=== PATIENT | female | born 1950 | race Caucasian/White ===

== ENCOUNTER 2016-10-13 15:32 | Outpatient (CLI) ==
--- NOTE | 2016-10-13 16:11 | DI ---
EXAM: Left foot three view HISTORY: Pain COMPARISON: None FINDINGS: No fracture or dislocation. Small plantar calcaneal spur. The joints are normal. No foca l soft tissue abnormality. Tiny superficial soft tissue calcification suggested near fifth MTP joint . IMPERSSION: Small plantar calcaneal spur.
== END 2016-10-13 15:33 | disposition home or self-care (01) ==
LOC: RAD 15:32
PROVIDERS: ATTEND Family Medicine
DX: M79.672 Pain in left foot (principal)

== ENCOUNTER 2017-02-16 10:00 | Outpatient (RCR) ==
--- NOTE | 2017-02-01 09:26 | RS.OPPTEV2 ---
Date of Note: 01/27/17 Visit #: 1 Date of Evaluation: 01/27/17 Payer Source: Medicaid Treatment Diagnosis: Gait abnormality, Right hemiparesis History of Condition/Mechanism of Injury:: States she was ambulating with a walker up until the last 6 months. States she had a fall that hurt her right shoulder. States putting weight through her right shoulder with use of the walker, caused increased pain, so she quit walking. Level of Function: Patient has been dependent for most selfcare and ADL's. She has a hospital bed at home and has an overhead trapeze bar that she uses to get herself in and out of bed. She is either in her wheelchair or in her bed. Functional Limitations: Sleep, Self Care, ADL's, Reaching, Pushing, Pulling, Lifting, Carrying, Sitting, Standing, Bending, Squatting, Ambulation, Community Access/Integration Current Subjective/complaints:: Patient reports that she wants to walk. States that she had to quit using the walker to ambulate because it bothered her right shoulder. States she was supposed to see a specialist about the right shoulder but has not. She feels that she has more strength in her right leg and wants to be able to walk, at least short distances. Treatment Side (optional): Right Medical History Medical History: Unremarkable, Hypertension, CVA/TIA (06/23/15), Diabetes Medical History Comments:: (L) wrist fx Smoking Status: Current every day smoker Patient's Goals: Her goal is to be able to walk short distances. Pain Assessment - Pain Description Pain Location: Reports no pain Functional Outcome Measure - G Codes & Severity Modifier G Codes & Modifier: NA Source of G Code score: NA Observation - Observation Inspection: Patient presents to therapy via wheelchair. Patient able to transfer from wheelchair to treatment bed with CGA of one. Posture: Scapula Asymmetry (right scapula depressed) Handedness: Right Gait - Gait Pattern Gait Comments: Patient assisted with octavio-walker with moderate assistance of 2, ~ 30 feet. Patient demonstrates good clearance of right foot, even though she has decreased right hip and knee flexion. Sit to stand with min of 1-2 to stand with octavio-walker. Needs assistance with balance to get use to the octavio- walker. Demonstrates a very NBOS due to right foot placement. General Range of Motion: Bilateral LE ROM is WFL's. Left UE is WFL's. Right shoulder demonstrates 50% of normal ROM, full elbow AROM, 75% wrist AROM. AROM of the right UE is slow. Muscle Strength: Left UE and LE demonstrates 5/5 throughout. Right UE demonstrates generally 3/5 shoulder, 3+ to 4-/5 elbow, 4-/5 of the wrist. Right LE demonstrates hip 3+ to 4-/5, knee 4- to 4/5, ankle 4-/5. Sensation - Sensation Right Lower Extremity: Intact/Normal Left Lower Extremity: Intact/Normal Balance - Sitting Balance Static Sitting Balance: Good Dynamic Sitting Balance: Good (-) - Standing Balance Static Standing Balance: Fair Dynamic Standing Balance: Fair Additional Comments: Additional Comments: Right hamstring and heelcord are tight compared to the left LE. Interventions - Exercise/Activities/Manual Therapy Exercises/Activities: NA Manual Therapy: NA - Charges Total Direct Minutes: 50 mins Total Treatment Time: 50 mins Procedures billed for this date of service:: BERNIE BrushX 3 Assessment Assessment: Patient presents to therapy with a diagnosis of gait difficulty and hemiplegia. She demonstrates decreased level of function over the last 4-6 months with ambulation due to right shoulder pain and limitations with using a walker. She displays strong motivation to use whatever other assistive device she can to be able to walk short distances. She exhibits more tone in the right side and shows potential to ambulate with a octavio-walker with balance, proprioception, and gait training activities. Patient Education: Education of diagnosis, Home Safety, Education of Plan of Care Rehab Potential: Good Short Term Goals Goal #1: Sit to stand with octavio-walker with CGA of one and verbal cues. Goal to be met by: 02/15/17 Goal #2: Pt to amb. 10 feet with consistent good base of support with HW & mod of 1. Goal to be met by: 02/15/17 Goal #3: Static standing balance improved to Good. Goal to be met by: 02/15/17 Goal #4: Patient independent and compliant with HEP. Goal to be met by: 02/15/17 Shear Operator Automatic Goals Goal #1: Pt knows HEP and to continue ex's to maintain functional level at D/C. Goal to be met by: 04/02/17 Goal #2: Pt able to amb. with HW independently short distances. Goal to be met by: 04/02/17 Goal #3: Pt able to perform all transfers using HW independently. Goal to be met by: 04/02/17 Goal #4: Pt to demonstrate good safety awareness with all mobility. Goal to be met by: 04/02/17 Plan - Treatment to be Provided Procedures: Therapeutic Exercises, Therapeutic Activity, Gait Training, Neuromuscular Rehab, Patient Education Modalities: No Modalities - Treatment Plan Frequency: 3 X week Duration: 8 weeks ORDER # VISITS AND/OR THROUGH DATE: 04/02/17 - Treatment Code (1) Gait difficulty Comments: R26.9 (2) Hemiplegia following CVA (cerebrovascular accident) Comments: I69.359 (3) Impaired functional mobility, balance, gait, and endurance Comments: Z74.09
--- NOTE | 2017-02-01 14:55 | RS.OPPTDN ---
Subjective Date of Note: 02/01/17 Visit #: 2 Date of Evaluation: 01/27/17 Payer Source: Medicaid Treatment Diagnosis: Gait abnormality, Right hemiparesis Current Subjective/complaints:: Reports she has not walked safely in approximately 5 months,but is willing to try to get better. Pain Assessment - Pain Description Pain Location: Reports no pain Pain Description: Tightness Current Pain Intensity: Does not rate Interventions - Exercise/Activities/Manual Therapy Exercises/Activities: 50 mins. total of exercise,NMR and gait training , including R LE stretches in all directions,prolonged static stretch and pressure application for inhibiting hypertonus ni the R LE,sitting and standing weight shift with various widths of her base of support.Tramsfers and gait training with octavio-walker for ~25" and mod.assist of 1. Total minutes of Exercise: 50 Manual Therapy: NA Total minutes of Manual Therapy: 0 HOME EXERCISE PROGRAM: Encouraged patient to try pillow squeezes and QS for home. Hook-lying LE lifts, SLR, SAQ - Charges Total Direct Minutes: 50 Total Treatment Time: 50 Procedures billed for this date of service:: ex,NMR,gait training Assessment: Patient has improved base of support after passive stretches today.Less tone is present with transfers and she is able to maintain a functionnal JOSHUA for ambulating short distances.She is still high risk for falls if unassisted,can benefit from skilled PT to improve her level of function and safety. Patient Education: Education of diagnosis, Body/Joint mechanics, Home Exercise Program, Home Safety, Activity Modification, Education of Plan of Care Short Term Goals Goal #1: Sit to stand with octavio-walker with CGA of one and verbal cues. Goal to be met by: 02/15/17 Progress towards Goal:: Progressing Goal #2: Pt to amb. 10 feet with consistent good base of support with HW & mod of 1. Goal to be met by: 02/15/17 Progress towards Goal:: Progressing Goal #3: Static standing balance improved to Good. Goal to be met by: 02/15/17 Goal #4: Patient independent and compliant with HEP. Goal to be met by: 02/15/17 Prison Goals Goal #1: Pt knows HEP and to continue ex's to maintain functional level at D/C. Goal to be met by: 04/02/17 Goal #2: Pt able to amb. with HW independently short distances. Goal to be met by: 04/02/17 Goal #3: Pt able to perform all transfers using HW independently. Goal to be met by: 04/02/17 Goal #4: Pt to demonstrate good safety awareness with all mobility. Goal to be met by: 04/02/17 Plan PLAN OF CARE EXPIRES ON:: 04/02/17 ORDER # VISITS AND/OR THROUGH DATE: 04/02/17 PLAN: Continue Plan of Care
--- NOTE | 2017-02-04 14:41 | RS.OPPTDN ---
Subjective Date of Note: 02/04/17 Visit #: 3 Date of Evaluation: 01/27/17 Payer Source: Medicaid Treatment Diagnosis: Gait abnormality, Right hemiparesis Current Subjective/complaints:: Patient reports no soreness or discomfort after stretches from last session. Pain Assessment - Pain Description Pain Location: Reports no pain Pain Description: Tightness Current Pain Intensity: Does not rate Interventions - Exercise/Activities/Manual Therapy Exercises/Activities: 55 mins. total of exercise,NMR and gait training , including R LE stretches in all directions,prolonged static stretch and pressure application for inhibiting hypertonus ni the R LE,lower trunk rotation in hooklying position,sitting and standing weight shift with various widths of her base of support.Tramsfers and gait training with octavio-walker for ~40" and mod.assist of 1. Total minutes of Exercise: 55 Manual Therapy: NA Total minutes of Manual Therapy: 0 HOME EXERCISE PROGRAM: Encouraged patient to try pillow squeezes and QS for home. Hook-lying LE lifts, SLR, SAQ - Charges Total Direct Minutes: 55 Total Treatment Time: 55 Procedures billed for this date of service:: ex 2,NMR,gait training Assessment: Patient has improved trunk control today with gait,begins with appropriate JOSHUA,but has narrower base as the gait progresses.She is able to self -correct this after brief rest period today.She is very attentive ,motivated to improve. Patient Education: Education of diagnosis, Body/Joint mechanics, Home Exercise Program, Home Safety, Activity Modification, Education of Plan of Care Patient demonstrates compliance with HEP?: Yes Short Term Goals Goal #1: Sit to stand with octavio-walker with CGA of one and verbal cues. Goal to be met by: 02/15/17 Progress towards Goal:: Progressing Goal #2: Pt to amb. 10 feet with consistent good base of support with HW & mod of 1. Goal to be met by: 02/15/17 Progress towards Goal:: Progressing Goal #3: Static standing balance improved to Good. Goal to be met by: 02/15/17 Progress towards Goal:: No Change Goal #4: Patient independent and compliant with HEP. Goal to be met by: 02/15/17 Progress towards Goal:: Progressing Usp Goals Goal #1: Pt knows HEP and to continue ex's to maintain functional level at D/C. Goal to be met by: 04/02/17 Progress towards goal: Progressing Goal #2: Pt able to amb. with HW independently short distances. Goal to be met by: 04/02/17 Goal #3: Pt able to perform all transfers using HW independently. Goal to be met by: 04/02/17 Goal #4: Pt to demonstrate good safety awareness with all mobility. Goal to be met by: 04/02/17 Plan PLAN OF CARE EXPIRES ON:: 04/02/17 ORDER # VISITS AND/OR THROUGH DATE: 04/02/17 PLAN: Continue Plan of Care
--- NOTE | 2017-02-08 13:52 | RS.OPPTDN ---
Subjective Date of Note: 02/08/17 Visit #: 4 Date of Evaluation: 01/27/17 Payer Source: Medicaid Treatment Diagnosis: Gait abnormality, Right hemiparesis Current Subjective/complaints:: Patient says she has not fallen lately. Reports she believes therapy is helping and glad to be up walking. Pain Assessment - Pain Description Pain Location: Reports no pain Pain Description: Tightness Current Pain Intensity: Does not rate Interventions - Exercise/Activities/Manual Therapy Exercises/Activities: 45 mins. total of exercise,NMR and gait training , including R LE stretches in all directions,prolonged static stretch and pressure application for inhibiting hypertonus in the R LE,lower trunk rotation in hooklying position,sitting and standing weight shift with various widths of her base of support. She performs hip flexion and abd at railing. Transfers and gait training with octavio-walker for 2 x40" and mod.assist of 1. Manual Therapy: NA HOME EXERCISE PROGRAM: Encouraged patient to try pillow squeezes and QS for home. Hook-lying LE lifts, SLR, SAQ - Charges Total Direct Minutes: 45 Total Treatment Time: 45 Procedures billed for this date of service:: ex, NMR, GT Assessment: Patient able to sy increased amb distance today. She needed physical cues to keep feet apart with amb, but guides octavio walker well. Needs cueing to safely transfer to chair from standing. Patient Education: Education of diagnosis, Body/Joint mechanics, Home Exercise Program, Home Safety, Activity Modification, Education of Plan of Care Patient demonstrates compliance with HEP?: Yes Short Term Goals Goal #1: Sit to stand with octavio-walker with CGA of one and verbal cues. Goal to be met by: 02/15/17 Progress towards Goal:: Progressing Goal #2: Pt to amb. 10 feet with consistent good base of support with HW & mod of 1. Goal to be met by: 02/15/17 Progress towards Goal:: Progressing Goal #3: Static standing balance improved to Good. Goal to be met by: 02/15/17 Progress towards Goal:: No Change Goal #4: Patient independent and compliant with HEP. Goal to be met by: 02/15/17 Progress towards Goal:: Progressing Edger Operator Goals Goal #1: Pt knows HEP and to continue ex's to maintain functional level at D/C. Goal to be met by: 04/02/17 Progress towards goal: Progressing Goal #2: Pt able to amb. with HW independently short distances. Goal to be met by: 04/02/17 Goal #3: Pt able to perform all transfers using HW independently. Goal to be met by: 04/02/17 Goal #4: Pt to demonstrate good safety awareness with all mobility. Goal to be met by: 04/02/17 Plan PLAN OF CARE EXPIRES ON:: 04/02/17 ORDER # VISITS AND/OR THROUGH DATE: 04/02/17 PLAN: Progress Exercises
--- NOTE | 2017-02-12 15:02 | RS.OPPTDN ---
Subjective Date of Note: 02/12/17 Visit #: 5 Date of Evaluation: 01/27/17 Payer Source: Medicaid Treatment Diagnosis: Gait abnormality, Right hemiparesis Current Subjective/complaints:: Patient says she has had more soreness to the R upper leg. She says she feels she is progressing with amb and ex in PT and eager to continue to improve. Pain Assessment - Pain Description Pain Location: Reports no pain Pain Description: Tightness Current Pain Intensity: Does not rate Interventions - Exercise/Activities/Manual Therapy Exercises/Activities: 55 mins. total of exercise,NMR and gait training , including R LE stretches in all directions,prolonged static stretch and pressure application for inhibiting hypertonus in the R LE,lower trunk rotation in hooklying position, ball squeezes, isometric hip abd, trunk rotation isometrics, bridging 2/5-10), sitting and standing weight shift with various widths of her base of support. She performs hip flexion and abd at railing. Transfers and gait training with octavio-walker for 2 x40" and mod.assist of 1. Manual Therapy: NA HOME EXERCISE PROGRAM: Encouraged patient to try pillow squeezes and QS for home. Hook-lying LE lifts, SLR, SAQ - Charges Total Direct Minutes: 55 Total Treatment Time: 55 Procedures billed for this date of service:: nmr, ex2, gt Assessment: Patient demo increased strength with resistance exercises, gait becoming slightly more steady with hemiwalker. Standing exercises require mod A at times and stability by PEDIATRIC ONCOLOGY NURSE for her R foot placement. Patient Education: Education of diagnosis, Body/Joint mechanics, Home Exercise Program, Home Safety, Activity Modification, Education of Plan of Care Patient demonstrates compliance with HEP?: Yes Short Term Goals Goal #1: Sit to stand with octavio-walker with CGA of one and verbal cues. Goal to be met by: 02/15/17 Progress towards Goal:: Progressing Goal #2: Pt to amb. 10 feet with consistent good base of support with HW & mod of 1. Goal to be met by: 02/15/17 Progress towards Goal:: Progressing Goal #3: Static standing balance improved to Good. Goal to be met by: 02/15/17 Progress towards Goal:: No Change Goal #4: Patient independent and compliant with HEP. Goal to be met by: 02/15/17 Progress towards Goal:: Progressing Cemetery Vault Installer Goals Goal #1: Pt knows HEP and to continue ex's to maintain functional level at D/C. Goal to be met by: 04/02/17 Progress towards goal: Progressing Goal #2: Pt able to amb. with HW independently short distances. Goal to be met by: 04/02/17 Goal #3: Pt able to perform all transfers using HW independently. Goal to be met by: 04/02/17 Goal #4: Pt to demonstrate good safety awareness with all mobility. Goal to be met by: 04/02/17 Plan PLAN OF CARE EXPIRES ON:: 04/02/17 ORDER # VISITS AND/OR THROUGH DATE: 04/02/17 PLAN: Progress Exercises
== END 2017-02-18 ==
PROVIDERS: ATTEND Family Medicine
DX: R26.9 Unspecified abnormalities of gait and mobility (principal); G81.90 Hemiplegia, unspecified affecting unspecified side

== ENCOUNTER 2017-03-09 11:00 | Outpatient (RCR) ==
--- NOTE | 2017-02-19 09:46 | RS.CXNS ---
Date of scheduled appointment: 02/19/17 Type: Cancel
--- NOTE | 2017-02-26 09:31 | RS.CXNS ---
Addendum entered and electronically signed by REINA GALAN PTA 02/26/17 10:00 : Additional Information: Patient came in an hour late as she had forgotten appt time Original Note: Date of scheduled appointment: 02/26/17 Type: No Show
--- NOTE | 2017-03-02 14:41 | RS.OPPTDN ---
Subjective Date of Note: 03/02/17 Visit #: 7 Date of Evaluation: 01/27/17 Payer Source: Medicaid Treatment Diagnosis: Gait abnormality, Right hemiparesis Current Subjective/complaints:: Reports she is doing better with trasnfers at home. States she walks occasionally with assistance from her son. Pain Assessment - Pain Description Pain Location: Reports no pain Current Pain Intensity: Does not rate Interventions - Exercise/Activities/Manual Therapy Exercises/Activities: 50 mins total. Exercise for passive stretching of the right LE. Focus on hamstrings, hip flexor, and heel cords. Isometric hip add, isometric flexion, isometric hip abd. SLR on left and alt hip flexion. Sit to stand and weight-shifting, multiple reps. Sitting LAQ and hip flexion. Gait training with octavio-walker, 40' x2reps with min assist of 1. Patient actively trying to keep feet apart and have good placement of right LE when advancing. Total minutes of Exercise: EX 35mins, Gait training 15mins Manual Therapy: NA HOME EXERCISE PROGRAM: Encouraged patient to try pillow squeezes and QS for home. Hook-lying LE lifts, SLR, SAQ - Charges Total Direct Minutes: 50mins Total Treatment Time: 50mins Procedures billed for this date of service:: EX2, GT Assessment: Patient demos improvement in foot placement with ambulation. She demos improvement safety awareness. Patient Education: Home Exercise Program, Home Safety Patient demonstrates compliance with HEP?: Yes Short Term Goals Goal #1: Sit to stand with octavio-walker with CGA of one and verbal cues. Goal to be met by: 02/15/17 Progress towards Goal:: Progressing Goal #2: Pt to amb. 10 feet with consistent good base of support with HW & mod of 1. Goal to be met by: 02/15/17 Progress towards Goal:: Progressing Goal #3: Static standing balance improved to Good. Goal to be met by: 02/15/17 Progress towards Goal:: Progressing Goal #4: Patient independent and compliant with HEP. Goal to be met by: 02/15/17 Progress towards Goal:: Progressing Laser Engraver Goals Goal #1: Pt knows HEP and to continue ex's to maintain functional level at D/C. Goal to be met by: 04/02/17 Progress towards goal: Progressing Goal #2: Pt able to amb. with HW independently short distances. Goal to be met by: 04/02/17 Goal #3: Pt able to perform all transfers using HW independently. Goal to be met by: 04/02/17 Goal #4: Pt to demonstrate good safety awareness with all mobility. Goal to be met by: 04/02/17 Plan PLAN OF CARE EXPIRES ON:: 04/02/17 ORDER # VISITS AND/OR THROUGH DATE: 04/02/17 PLAN: Progress Exercises (Contine to progress exercise and mobility training to increase functional activity level.)
--- NOTE | 2017-03-04 14:42 | RS.OPPTDN ---
Subjective Date of Note: 03/04/17 Visit #: 8 Date of Evaluation: 01/27/17 Payer Source: Medicaid Treatment Diagnosis: Gait abnormality, Right hemiparesis Current Subjective/complaints:: Patient says she was trying octavio walker amb at home and she fell yesterday. She says she was walking with her son and she became off balanced and though her son had her. She slid down onto her bottom on his foot. She denies being hurt. She says she is excited that she has the octavio walker to use at home and is trying to be as safe as he can. Pain Assessment - Pain Description Pain Location: Reports no pain Current Pain Intensity: Does not rate Interventions - Exercise/Activities/Manual Therapy Exercises/Activities: 50 mins total. Exercise for passive stretching of the right LE. Focus on hamstrings, hip flexor, and heel cords. SAQ 1 1/2#, QS, Ball squeezes, isometric flexion, isometric hip abd. Red tband trunk rotation to the L and R. Bridging and Bilateral LE lift with ball 2x10. Bilateral SAQ with ball at ankles for lift 2x10. SLR on left and alt hip flexion. Sit to stand and weight-shifting, multiple reps. Gait training with octavio-walker, 40' x2reps with min assist of 1. Patient actively trying to keep feet apart and have good placement of right LE when advancing. Patient has 1 LOB and had to cue to take extra steps as she tried to sit down in waiting room chair and was not near enough. Manual Therapy: NA HOME EXERCISE PROGRAM: Encouraged patient to try pillow squeezes and QS for home. Hook-lying LE lifts, SLR, SAQ - Charges Total Direct Minutes: 50 Total Treatment Time: 50 Procedures billed for this date of service:: neuro1, ex2 Assessment: Patient had recent fall yesterday landing on her son's foot with her bottom. She has been trying to walk at home now since she has a loaner octavio walker. Instructed and reviewed HEP and safety when transferring and using her octavio walker. Patient Education: Education of diagnosis, Body/Joint mechanics, Home Exercise Program, Home Safety, Activity Modification, Education of Plan of Care Patient demonstrates compliance with HEP?: Yes Short Term Goals Goal #1: Sit to stand with octavio-walker with CGA of one and verbal cues. Goal to be met by: 02/15/17 Progress towards Goal:: Progressing Goal #2: Pt to amb. 10 feet with consistent good base of support with HW & mod of 1. Goal to be met by: 02/15/17 Progress towards Goal:: Progressing Goal #3: Static standing balance improved to Good. Goal to be met by: 02/15/17 Progress towards Goal:: Progressing Goal #4: Patient independent and compliant with HEP. Goal to be met by: 02/15/17 Progress towards Goal:: Progressing Personal Lines Underwriter Goals Goal #1: Pt knows HEP and to continue ex's to maintain functional level at D/C. Goal to be met by: 04/02/17 Progress towards goal: Progressing Goal #2: Pt able to amb. with HW independently short distances. Goal to be met by: 04/02/17 Progress towards goal: Progressing Comments: now amb with assistance Goal #3: Pt able to perform all transfers using HW independently. Goal to be met by: 04/02/17 Goal #4: Pt to demonstrate good safety awareness with all mobility. Goal to be met by: 04/02/17 Plan PLAN OF CARE EXPIRES ON:: 04/02/17 ORDER # VISITS AND/OR THROUGH DATE: 04/02/17 PLAN: Progress Exercises
--- NOTE | 2017-03-09 12:03 | RS.OPPTDN ---
Subjective Date of Note: 03/09/17 Visit #: 9 Date of Evaluation: 01/27/17 Payer Source: Medicaid Treatment Diagnosis: Gait abnormality, Right hemiparesis Current Subjective/complaints:: Patient pleasant and motivated to improve. Pain Assessment - Pain Description Pain Description: Aching Current Pain Intensity: Does not rate Interventions - Exercise/Activities/Manual Therapy Exercises/Activities: 45 mins total. Exercise for passive stretching of the right LE. Focus on hamstrings, hip flexor, and heel cords.Initiated leg press tody with both LE's and 15 #,30# ,3/10 each.R LE leg press with 15# and assist to initiate the motion,progressed to doing with out assist.Standing weight - shift with widened JOSHUA to inhibit tone.Reviewed safety measures for transfers and gait.Gait training for ~ 60' with min assist ,one loss of balance as she fatigued , with mod assist to correct. Total minutes of Exercise: 45 Manual Therapy: NA Total minutes of Manual Therapy: 0 HOME EXERCISE PROGRAM: Encouraged patient to try pillow squeezes and QS for home. Hook-lying LE lifts, SLR, SAQ - Charges Total Direct Minutes: 45 Total Treatment Time: 45 Procedures billed for this date of service:: ex 2 , gait 1 Assessment: Patient has improved ability to weight -shift to R today to inhibit tone before initiating gait,also resulting in wider JOSHUA.She has decreased trunk / pelvic dissociation due to tone.She contuunues to fatigue easily with standing activities,still moderate to high risk of falls if unassisted. Patient Education: Education of diagnosis, Body/Joint mechanics, Home Exercise Program, Home Safety, Activity Modification, Education of Plan of Care Short Term Goals Goal #1: Sit to stand with octavio-walker with CGA of one and verbal cues. Goal to be met by: 02/15/17 Progress towards Goal:: Progressing Goal #2: Pt to amb. 10 feet with consistent good base of support with HW & mod of 1. Goal to be met by: 02/15/17 Progress towards Goal:: Progressing Goal #3: Static standing balance improved to Good. Goal to be met by: 02/15/17 Progress towards Goal:: Progressing Goal #4: Patient independent and compliant with HEP. Goal to be met by: 02/15/17 Progress towards Goal:: Progressing Department Specialist Goals Goal #1: Pt knows HEP and to continue ex's to maintain functional level at D/C. Goal to be met by: 04/02/17 Progress towards goal: Progressing Goal #2: Pt able to amb. with HW independently short distances. Goal to be met by: 04/02/17 Progress towards goal: Progressing Goal #3: Pt able to perform all transfers using HW independently. Goal to be met by: 04/02/17 Goal #4: Pt to demonstrate good safety awareness with all mobility. Goal to be met by: 04/02/17 Plan PLAN OF CARE EXPIRES ON:: 04/02/17 ORDER # VISITS AND/OR THROUGH DATE: 04/02/17 PLAN: Continue Plan of Care
--- NOTE | 2017-03-16 13:56 | RS.CXNS ---
Date of scheduled appointment: 03/16/17 Type: No Show
== END 2017-03-20 ==
PROVIDERS: ATTEND Family Medicine
DX: R26.9 Unspecified abnormalities of gait and mobility (principal); G81.90 Hemiplegia, unspecified affecting unspecified side

== ENCOUNTER 2017-05-01 15:38 | Emergency (ER) ==
[2017-05-01 15:43] VITALS: BP 102/64; TEMP 99.4; BMI 20.4
--- NOTE | 2017-05-01 15:57 | ED.PDOC ---
General ED Provider: Dr. KIMBERLEY BISHOP-ER Chief Complaint: Fall Stated Complaint: i fell this am and hit my chest on a chest--im only hurting in my chest --i didnt hit my head or neck Time Seen by Physician: 15:45 Mode of Arrival: Walk-In Information Source: Patient, Family Exam Limitations: No limitations Primary Care Provider: CESAR MARTE Nursing and Triage Documentation Reviewed and Agree: Yes Trauma/Injury Complaint Exam - Truncal Trauma Complaint/Exam Location of Pain: Reports: Right, Anterior, Chest Onset: this am Symptoms Are: Still present Onset of Pain: Reports: Immediate Initial Severity: Mild Current Severity: Mild Mechanism: Reports: Blunt trauma, Fall Aggravating: Reports: Movement, Deep breathing, Cough Alleviating: Reports: Shallow breathing Associated Signs and Symptoms: Denies: Short of air, Chest pain, Cough, Hematuria, Abdominal pain, Fever, Nausea, Vomiting Immobilization Removed Post Exam: No Vertebral Tenderness Present: No Vertebral Deformity Present: No Trachial Deviation Present: No JVD Present: No Crepitus Present: No Diminished Breath Sounds: No Reproducible Pain at: right chest wall Muffled Heart Sounds Present: No Paradoxical Chest Wall Movement Present: No Abdominal Guarding Present: No Abdominal Rigidity Present: No Referred Shoulder Pain (Kehr's Sign) Present: No Skin Findings: Present: Contusion, Tenderness Differential Diagnoses: Chest Wall Abrasion, Rib Fracture Review of Systems - Review Of Systems Constitutional: Reports: No symptoms Eyes: Reports: No symptoms Ears, Nose, Mouth, Throat: Reports: No symptoms Respiratory: Reports: No symptoms Cardiac: Reports: No symptoms GI: Reports: No symptoms : Reports: No symptoms Musculoskeletal: Reports: No symptoms Skin: Reports: No symptoms Neurological: Reports: No symptoms Endocrine: Reports: No symptoms Hematologic/Lymphatic: Reports: No symptoms All Other Systems: Reviewed and Negative Past Medical History - Past Medical History Previously Healthy: No Endocrine: Reports: DM 2 Cardiovascular: Reports: CAD Respiratory: Reports: None Hematological: Reports: None Gastrointestinal: Reports: GERD Genitourinary: Reports: None Neuro/Psych: Reports: CVA, Depression Musculoskeletal: Reports: None Cancer: Reports: None Last Menstrual Period: HSYTERECTOMY - Surgical History General Surgical History: Reports: Orthopedic (WRIST,). Denies: CABG (HEART STENT X 1) - Family History Family History: Reports: Unknown - Social History Smoking Status: Current every day smoker, Heavy tobacco smoker Hx Substance Use: No Alcohol Screening: None Lives: With family - Immunizations Tetanus Shot up to Date: Yes Physical Exam - Physical Exam Appearance: Well-appearing, No pain distress, Well-nourished Pain Distress: Mild Eyes: [place], EOMI, Conjunctiva clear ENT: Ears normal, Nose normal, Oropharynx normal Neck: Supple Respiratory: Airway patent, Breath sounds clear, Breath sounds equal, Respirations nonlabored Cardiovascular: RRR, Pulses normal, No rub, No murmur GI/: Soft, Nontender, No masses, Bowel sounds normal, No Organomegaly Musculoskeletal: Normal strength, ROM intact, No edema, No calf tenderness Skin: Warm, Dry, Normal color Neurological: Sensation intact, Motor intact, Reflexes intact, Cranial nerves intact, Alert, Oriented Psychiatric: Affect appropriate, Mood appropriate Interpretation - Radiology Interpretation Radiology Interpretation By: Radiologist Radiology Results: Positive Exam Interpreted: CT Scan ("pulmonary masses") Critical Care Note - Critical Care Note Total Time (mins): 0 Course - Course Orders, Labs, Meds: Orders Category Date Time Status CT CHEST W/O CONTRAST Stat RADS 05/01/17 15:49 Completed Vital Signs: Temp Pulse Resp BP Pulse Ox 05/01/17 15:39 99.4 F 105 H 18 102/64 96 Departure - Departure Time of Disposition: 16:42 Disposition: HOME SELF-CARE Discharge Problem: Chest wall pain, Pulmonary mass Instructions: Chest Wall Pain (ED) Condition: Good Pt referred to PMD for follow-up: Yes Additional Instructions: norco 7.5mg q 4hrs prn pain #20--call dr noel office on wednesday to discuss pulmonary masses on ct scan Allergies/Adverse Reactions: Allergies No Known Allergies Allergy (Verified 05/01/17 15:43) Home Medications: Ambulatory Orders Amitriptyline HCl [Elavil] 25 mg PO BEDTIME 02/15/14 Clopidogrel Bisulfate [Plavix] 75 mg PO DAILY 02/15/14 Esomeprazole Magnesium [Nexium] 20 mg PO DAILY 02/15/14 Glyburide [Diabeta] 5 mg PO BID 02/15/14 Insulin Glargine,Hum.rec.anlog [Lantus] 60 unit SUBCUT BEDTIME 02/15/14 Metformin HCl [Glucophage Xr] 500 mg PO BID 08/28/14 Aspirin [Aspirin EC] 81 mg PO DAILYWM 05/22/15 Atorvastatin Calcium [Lipitor] 40 mg PO DAILY 05/22/15 Calcium Carb, Citrate/Vit D3 [Calcium + D3 ER Tablet] 1 each PO BID 05/22/15 Levothyroxine Sodium [Synthroid] 50 mcg PO QDAC 05/22/15 Lisinopril [Zestril] 20 mg PO DAILY 05/22/15 Meclizine HCl [Antivert] 25 mg PO QID PRN 05/22/15 Disposition Discussed With: Patient, Family
--- NOTE | 2017-05-01 16:33 | CT ---
EXAM: CT THORAX HISTORY: Fall, chest wall pain. TECHNIQUE: CT thorax without intravenous contrast. 5-mm axial sections. Coronal and sagittal re-for mations. COMPARISON: 08/20/2014 FINDINGS: Normal heart size. A tiny pericardial effusion. Moderate atherosclerotic disease. Limited evaluati on of the mediastinum and hilar structures without the administration of intravenous contrast agent. However, there appear to be a few nonspecific regional lymph nodes some which are calcified. Lungs reveal evidence of emphysema and scattered fibrosis. There is a noncalcified nodule which appe ars to be in the upper aspect of the right middle lobe measuring 1 cm, enlarged since previous exam. Within the posterior left hilar space, there is a new spiculated multilobulated nodule with at least two components at about 1.1 cm each and a few tiny peripheral satellite lesions. There is no pleural fluid or vascular congestion. No pneumothorax. The bones reveal no easily identifiable fracture by CT. No peripheral soft tissue hematoma is identi fied IMPRESSION: 1. Pulmonary masses with at least the one on the left suspicious for neoplasia. Further workup is r ecommended. 2. Pulmonary emphysema. 3. No obvious acute injury or fracture. No pneumothorax or peripheral soft tissue hematoma.
[2017-05-01] MEDS ORDERED: NORCO 7.5-325 PO STA (16:43)
== END 2017-05-01 16:50 | disposition home or self-care (01) ==
LOC: ED 15:38
DX: R07.89 Other chest pain (principal); R91.8 Other nonspecific abnormal finding of lung field; F17.210 Nicotine dependence, cigarettes, uncomplicated; Z79.899 Other long term (current) drug therapy; W19.XXXA Unspecified fall, initial encounter
CPT/HCPCS: 99283

== ENCOUNTER 2017-08-24 08:33 | Outpatient (CLI) | END 2017-08-24 08:34 | disposition home or self-care (01) | LOC: LAB 08:33 | PROVIDERS: ATTEND Nurse Practitioner | DX: E03.8 Other specified hypothyroidism (principal) | CPT/HCPCS: 36415; 84439; 84443 ==

== ENCOUNTER 2017-12-02 14:53 | Emergency (ER) ==
[2017-12-02 14:53] VITALS: BMI 20.4
[2017-12-02 15:03] VITALS: TEMP 97.8
--- NOTE | 2017-12-02 15:37 | ED.PDOC ---
General ED Provider: Dr. KIMBERLEY MYERS Chief Complaint: Foot Pain/Injury Stated Complaint: Severe pain Rt Foot/ Numbness tingling Time Seen by Physician: 15:05 Mode of Arrival: Wheelchair Information Source: Patient Primary Care Provider: CESAR MARTE Nursing and Triage Documentation Reviewed and Agree: Yes Reviewed sepsis parameters & appropriate labs ordered?: Yes System Inflammatory Response Syndrome: Pulse >90 BPM, Not Applicable Sepsis Protocol: For patient's 13 years and over: Temp is 96.8 and below OR 101 and greater Pulse >90 BPM Resp >20/minute Acutely Altered Mental Status Are patient's symptoms suggestive of a new infection, such as: -Pneumonia -Skin, Soft Tissue -Endocarditis -UTI -Bone, Joint Infection -Implantable Device -Acute Abdominal Infection -Wound Infection -Meningitis -Blood Stream Catheter Infection -Unknown Review of Systems - Review Of Systems Constitutional: Reports: No symptoms, Malaise, Weakness Eyes: Reports: No symptoms Ears, Nose, Mouth, Throat: Reports: No symptoms Respiratory: Reports: No symptoms Cardiac: Reports: No symptoms GI: Reports: No symptoms : Reports: No symptoms Musculoskeletal: Reports: No symptoms Skin: Reports: No symptoms Neurological: Reports: No symptoms, Unable to move lower ext, Weakness, Other ( prev cva) Endocrine: Reports: No symptoms Hematologic/Lymphatic: Reports: No symptoms All Other Systems: Reviewed and Negative Past Medical History - Past Medical History Previously Healthy: No Endocrine: Reports: DM 2 Cardiovascular: Reports: CAD Respiratory: Reports: None Hematological: Reports: None Gastrointestinal: Reports: GERD Genitourinary: Reports: None Neuro/Psych: Reports: CVA, Depression Musculoskeletal: Reports: None Cancer: Reports: None Last Menstrual Period: n/a - Surgical History General Surgical History: Reports: Orthopedic (WRIST,). Denies: CABG (HEART STENT X 1) - Family History Family History: Reports: Unknown - Social History Smoking Status: Current every day smoker, Heavy tobacco smoker Hx Substance Use: No Alcohol Screening: None Physical Exam - Physical Exam Appearance: Ill-appearing, Thin Ill-appearing: Moderate Pain Distress: Moderate Eyes: [place], EOMI, Conjunctiva clear ENT: Ears normal, Nose normal, Oropharynx normal Respiratory: Airway patent, Breath sounds clear, Breath sounds equal, Respirations nonlabored Cardiovascular: RRR, No rub, No murmur, Abnormal pulses (absent rt dosal pedis and post tibial, pos dorsal pedis by doppler ascultation ) GI/: Soft, Nontender, No masses, Bowel sounds normal, No Organomegaly Musculoskeletal: No calf tenderness, Limited strength Skin: Warm, Dry, Normal color Neurological: Sensation intact, Motor intact, Alert, Oriented Psychiatric: Affect appropriate, Mood appropriate Re-Evaluation - Re-Evaluation Time of Re-Evaluation: 19:15 Status: Unchanged Vital Signs Stable: Yes Appearance: NAD Lungs: Clear Skin: Warm and Dry Neuro: Alert and Oriented X3 CV: RRR Critical Care Note - Critical Care Note Total Time (mins): 60 (eval, treatment, consult and transfer) Course - Course Hematology/Chemistry: 12/02/17 15:45 12/02/17 15:45 Orders, Labs, Meds: Lab Review 12/02/17 12/02/17 12/02/17 15:45 15:45 15:45 WBC 14.16 H RBC 4.51 Hgb 12.8 Hct 38.8 MCV 86.0 MCH 28.4 MCHC 33.0 RDW Coeff of Gadiel 14.1 Plt Count 467 H Immature Gran % (Auto) 0.4 Neut % (Auto) 60.5 Lymph % (Auto) 29.9 [place] % (Auto) 7.3 Eos % (Auto) 1.2 Baso % (Auto) 0.7 Immature Gran # (Auto) 0.1 Neut # (Auto) 8.6 H Lymph # (Auto) 4.2 H [place] # (Auto) 1.0 Eos # (Auto) 0.2 Baso # (Auto) 0.1 ESR 36 H PT 10.2 INR 1.02 APTT 25.5 Sodium Potassium Chloride Carbon Dioxide Anion Gap BUN Creatinine Estimated GFR (MDRD) BUN/Creatinine Ratio Glucose Calcium Total Bilirubin AST ALT Alkaline Phosphatase Total Protein Albumin Globulin Albumin/Globulin Ratio 12/02/17 15:45 WBC RBC Hgb Hct MCV MCH MCHC RDW Coeff of Gadiel Plt Count Immature Gran % (Auto) Neut % (Auto) Lymph % (Auto) [place] % (Auto) Eos % (Auto) Baso % (Auto) Immature Gran # (Auto) Neut # (Auto) Lymph # (Auto) [place] # (Auto) Eos # (Auto) Baso # (Auto) ESR PT INR APTT Sodium 143 Potassium 4.2 Chloride 106 Carbon Dioxide 26 Anion Gap 15.2 BUN 11 Creatinine 0.75 Estimated GFR (MDRD) 78.00 BUN/Creatinine Ratio 14.66 Glucose 206 H Calcium 9.7 Total Bilirubin 0.3 AST 12 L ALT 15 Alkaline Phosphatase 118 Total Protein 6.8 Albumin 3.1 L Globulin 3.7 Albumin/Globulin Ratio 0.84 Orders Category Date Time Status EKG-(ED ONLY) Stat CARDIO 12/02/17 15:33 Completed ED IV/MEDIPORT/POWERPORT .ONCE EMERGENCY 12/02/17 19:30 Ordered CBC W/ AUTO DIFF Stat LAB 12/02/17 15:45 Completed CMP [COMPREHENSIVE METABOLIC PANEL] Stat LAB 12/02/17 15:45 Completed ESR Stat LAB 12/02/17 15:45 Completed PT WITH INR Stat LAB 12/02/17 15:45 Completed PTT [PARTIAL THROMBOPLASTIN TIME] Stat LAB 12/02/17 15:45 Completed 0.9 % Sodium Chloride [Saline Flush] MEDS 12/02/17 19:30 Ordered 1 syr IVF PRN PRN HEPARIN SODIUM,PORCINE/D5W(250ml) MEDS 12/02/17 19:45 Ordered Premix 250 ml D5w 1 bag Heparin Sodium,Porcine/D5w [Heparin] 25,000 units IV 12 units/kg/hr Heparin Sodium,Porcine [Heparin] MEDS 12/02/17 19:30 Stat 5,000 units IVP ONCE STA SODIUM CHLORIDE 0.9% @ 125 MLS/HR(1,000ml) MEDS 12/02/17 19:30 Ordered Sodium Chloride 0.9% [Sodium Chloride] 1,000 ml IV 125 mls/hr CHEST, 1V AP ONLY Stat RADS 12/02/17 15:35 Completed Medications Generic Name Dose Route Start Last Admin Trade Name Freq PRN Reason Stop Dose Admin Heparin Sodium/Dextrose 25,000 250 mls @ 6.47 mls/hr 12/02/17 19:45 units/ Dextrose IV .Q24H LARY Protocol 12 UNITS/KG/HR Sodium Chloride 1,000 mls @ 125 mls/hr 12/02/17 19:30 Sodium Chloride IV 12/03/17 03:29 .Q8H STA Sodium Chloride 1 syr 12/02/17 19:30 Saline Flush IVF PRN PRN To flush IV Discontinued Medications Generic Name Dose Route Start Last Admin Trade Name Freq PRN Reason Stop Dose Admin Heparin Sodium (Porcine) 5,000 units 12/02/17 19:30 Heparin IVP 12/02/17 19:31 ONCE STA Vital Signs: Temp Pulse Resp BP Pulse Ox 12/02/17 14:54 97.8 F 104 H 16 92/50 L 96 NIKA Risk Score NIKA Risk Score: Risk Score Odds of by 30D 0 0.1 (0.1-0.2) 1 0.3 (0.2-0.3) 2 0.4 (0.3-0.5) 3 0.7 (0.6-0.9) 4 1.2 (1.0-1.5) 5 2.2 (1.9-2.6) 6 3.0 (2.5-3.6) 7 4.8 (3.8-6.1) Departure - Departure Time of Disposition: 19:30 Disposition: TSF SHORT-TRM HOSP Discharge Problem: Peripheral vascular disease of lower extremity, Claudication of right lower extremity, Diabetes Instructions: Peripheral Vascular Disease (ED) Condition: Stable Pt referred to PMD for follow-up: No IPMP verified?: No Allergies/Adverse Reactions: Allergies No Known Allergies Allergy (Verified 12/02/17 14:56) Home Medications: Ambulatory Orders Amitriptyline HCl [Elavil] 25 mg PO BEDTIME 02/15/14 Clopidogrel Bisulfate [Plavix] 75 mg PO DAILY 02/15/14 Esomeprazole Magnesium [Nexium] 20 mg PO DAILY 02/15/14 Glyburide [Diabeta] 5 mg PO BID 02/15/14 Insulin Glargine,Hum.rec.anlog [Lantus] 60 unit SUBCUT BEDTIME 02/15/14 Metformin HCl [Glucophage Xr] 500 mg PO BID 02/15/14 Aspirin [Aspirin EC] 81 mg PO DAILYWM 05/22/15 Atorvastatin Calcium [Lipitor] 40 mg PO DAILY 05/22/15 Calcium Carb, Citrate/Vit D3 [Calcium + D3 ER Tablet] 1 each PO BID 05/22/15 Levothyroxine Sodium [Synthroid] 50 mcg PO QDAC 05/22/15 Lisinopril [Zestril] 20 mg PO DAILY 05/22/15 Meclizine HCl [Antivert] 25 mg PO QID PRN 05/22/15 Transfer Form Completed: Yes Disposition Discussed With: Patient, Family Additional Information: Spoke with Dr Mota Vascular surgery at [facility]. Agreed to accept patient for consult if hospitalist would accept.Unable to see for approx 6 hrs due to impending emerg surgery. Spoke with Dr Ariza who agreed to accept in transfer. Discussed anticoagulation and agreed to administer heparin to the patient patient then transfer Explained to patient and her son Musculoskeletal Complaint Exam - Ankle/Foot Complaint/Exam Location of Injury: Reports: Right, Foot, Toe #1, Toe #2, Toe #5 Mechanism of Injury: Reports: No known trauma Symptoms Are: Reports: Still present Onset of Pain: Reports: Immediate Initial Severity: Severe Current Severity: Moderate Location: Reports: Diffuse Character: Reports: Aching, Throbbing, Stiffness Alleviating: Reports: Rest Aggravating: Reports: Movement Associated Signs and Symptoms: Reports: Tingling. Denies: Swelling, Redness, Bruising, Fever, Weakness, Numbness Gout Risk Factors: Reports: None Related Surgical History: Reports: None Lower Extremity Findings: Present: Ecchymosis, Erythema, Tenderness Achilles Tendon Abnormality: No Differential Diagnosis: Other (peripheral vascular disease/claudication )
--- NOTE | 2017-12-02 16:07 | DI ---
EXAM: Single view of the chest. History: Lung nodules. Comparison: Chest CT 11/24/2017 Findings: Heart size is normal. No focal consolidation. No appreciable pleural fluid and no pneumo thorax. The lung nodules described on previous chest CT are not well visualized with plain radiograp hy. There is probably mild emphysema. No acute osseous abnormalities. Impression: No acute cardiopulmonary process.
[2017-12-02] MEDS ORDERED: HEPARIN IVP STA (19:30)
[2017-12-02] MEDS ORDERED: SODIUM CHLORIDE 1,000 ML IV STA (19:30)
[2017-12-02] MEDS ORDERED: D5W IV SCH (19:45)
[2017-12-02] MEDS ORDERED: HEPARIN IV SCH (19:45)
[2017-12-02 20:05] VITALS: BP 185/79
[2017-12-02] MEDS ORDERED: DILAUDID IVP STA (20:21)
== END 2017-12-02 21:00 | disposition short-term general hospital (02) ==
LOC: ED 14:53
DX: I73.9 Peripheral vascular disease, unspecified (principal); E11.9 Type 2 diabetes mellitus without complications; R53.1 Weakness; I25.810 Atherosclerosis of coronary artery bypass graft(s) without angina pectoris; R20.2 Paresthesia of skin; R20.0 Anesthesia of skin; M79.671 Pain in right foot; Z79.899 Other long term (current) drug therapy; Z86.73 Personal history of transient ischemic attack (TIA), and cerebral infarction without residual deficits; F17.210 Nicotine dependence, cigarettes, uncomplicated; Z95.5 Presence of coronary angioplasty implant and graft
CPT/HCPCS: 36415; 80053; 85025; 85610; 85651; 85730; 93005; 93010; 96361; 96365; 96375; 99285

== ENCOUNTER 2017-12-02 20:59 | Outpatient (CLI) ==
[2017-12-02 14:53] VITALS: BMI 20.4
== END 2017-12-02 21:19 | disposition short-term general hospital (02) ==
LOC: AMBL 20:59
PROVIDERS: ATTEND Emergency Medicine
DX: M79.89 Other specified soft tissue disorders (principal); L53.9 Erythematous condition, unspecified

== ENCOUNTER 2018-01-19 13:58 | Outpatient (RCR) ==
--- NOTE | 2018-01-19 16:19 | RS.OTEVAL ---
Subjective Date of Note: 01/19/18 Visit #: 1 Date of Evaluation: 07/23/15 Payer Source: Medicaid Date of Onset/Injury/Change in Status: 06/23/15 Treatment Diagnosis: CVA Treatment Side (optional): Right Prior Level of Function.....Patient was independent with: ADL's, Self Care, Work /Vocation, Caregiving, Ambulation/Mobility, Community Integration/Access History of Condition/Mechanism of Injury: Pt had CVA on 06/23/2015 affecting the (R) side, hemiparesis (R) UE Functional Limitations: Sleep, Self Care, ADL's, Reaching, Pushing, Pulling, Lifting, Carrying, Sitting, Standing, Bending, Squatting, Ambulation, Community Access/Integration Current Complaints/Gains: Pt fatigues when trying to propel her WC with the Left arm and the left leg. Pt has no functional use of the RUE nor the RLE. Pt has increased tone of the RLE knee and is not able to stand on leg due to the decreased knee extension. Pt has limited use of the RUE due to the impaired proprioception, coordination and increased weakness of the UE. Medical History Medical History: Unremarkable, Hypertension, CVA/TIA (06/23/15), Diabetes Medical History Comments:: CVA, Left wrist fx, Surgical History Comments:: cardiac stent placement in 2015. Smoking Status: Current every day smoker Patient's Goals: Decreased pain and increased strength and AROM Pain Assessment - Pain Description Pain Description: 0 Current Pain Intensity: 0 Worst Pain Intensity: 0 Functional Outcome Measures - G Codes & Severity Modifier G Codes: . Source of G Code score: . Observation - Observation Posture: Forward Head Handedness: Left Additional Comments: Pt has had to become left handed due to the CVA. Shoulder ROM: Left WFL's Shoulder Muscle Strength: Left WFL's - Right Shoulder ROM Right Shoulder Flexion: 20 Right Shoulder Extension: 10 Right Shoulder ROM Limitations: Muscle Weakness, Muscle Tone Comments: CVA limits her movement. - Left Shoulder Strength Left Shoulder Flexion: 4+ Good + Left Shoulder Extension: 4+ Good + Left Shoulder Abduction: 4+ Good + Left Shoulder Adduction: 4+ Good + Left Shoulder External Rotation: 4+ Good + Left Shoulder Internal Rotation: 4+ Good + - Right Shoulder Strength Right Shoulder Flexion: 2 Poor Right Shoulder Extension: 2 Poor Right Shoulder Abduction: 2 Poor Right Shoulder Adduction: 2 Poor Right Shoulder External Rotation: 2 Poor Right Shoulder Internal Rotation: 2 Poor Elbow ROM: Left WFL's Elbow Muscle Strength: Left WFL's - Right Elbow ROM Right Elbow Extension: 30 Right Elbow Flexion: 30 Right Elbow Supination: 15 Right Elbow Pronation: 15 - Left Elbow Strength Left Elbow Extension: 4+ Good + Left Elbow Flexion: 4+ Good + Left Forearm Pronation: 4+ Good + Left Forearm Supination: 4+ Good + - Right Elbow Strength Right Elbow Extension: 2 Poor Right Elbow Flexion: 2 Poor Right Forearm Pronation: 2 Poor Right Forearm Supination: 2 Poor Wrist ROM: Left WFL's Wrist Muscle Strength: Left WFL's - Right Wrist/Hand ROM Right Wrist Extension: 20 Right Wrist Flexion: 25 Right Wrist Radial Deviation: 10 Right Wrist Ulnar Deviation: 10 Right Forearm Pronation: 15 Right Forearm Supination: 15 Right Wrist ROM Testing Limitations: Muscle Weakness, Muscle Tone, Pain Right Hand ROM: limited. Pt's hand does draw into a full fist intermittently. Sensation Right Upper Extremity: Impaired Left Upper Extremity: Intact/Normal Comments: Pt is able to weight shift with limited. Interventions - Exercise/Activities Exercise/Activities/Manual Therapy: PROM-A/AROM of (R) UE performed. Shoulder shrugs and retraction performed x 10 along with ISO x 4 directions x 10/1. Pt performed clock(NMR) in sidelying positon all positions. Restorator x 5 0-mins along with codmans ex. total ex/NMR time x 40 mins. HOME EXERCISE PROGRAM: Pt was fitted to a power wheelchair and a contour cushion. - Objective Findings Objective Findings:: Pain continues with slow steady progress - Charges Timed Code Treatment Minutes: 105 minutes Total Treatment Time: 1:45 Procedures billed for this date of service:: WC fitting x 7 units EVALUATION COMPLEXITY LEVEL: HISTORY: Medium, EXAM OF BODY SYSTEMS: Medium, CLINICAL DECISION MAKING: Medium Assessment Assessment: Patient has a manual WC at home. Client is weak and is able to propel the WC with the LUE and the LLE. Pt fatigues and is not able to propel her WC for very long. Pt stays in the bed most of the time due to not being able to propel very long. Rehab Potential: Good Problems/Comments: Needs a new WC. Pt is weak and would benefit from a power wheelchair. Short Term Goals Goal #1: . Cna Hha Goals Goal to be met by: 10/29/15 Goal to be met by: 10/29/15 Plan - Treatment to be provided Procedures: Patient Education Modalities: No Modalities - Treatment Plan Frequency: Eval only Duration: One time treatment ORDER # VISITS AND/OR THROUGH DATE: 1 - Treatment Code (1) Wheelchair fitting or adjustment Code(s): Z46.89 - ENCOUNTER FOR FITTING AND ADJUSTMENT OF OTH DEVICES Comments: Z46.89 Wheelchair fitting evaluation (2) CVA (cerebral vascular accident) Code(s): I63.9 - CEREBRAL INFARCTION, UNSPECIFIED Qualifiers: CVA mechanism: unspecified Qualified Code(s): I63.9 - Cerebral infarction, unspecified Comments: I63.9 CVA
--- NOTE | 2018-02-15 12:06 | RS.OTCNOTE ---
OT Case Note Date of Note: 02/15/18 Title: G codes for WC Evaluation Note: Based on observation during WC assessment, G code is Mobility, Walking, and moving around. Current CL. Goal CL. DC is CL
== END 2018-02-18 23:59 ==
PROVIDERS: ATTEND Family Medicine
DX: Z46.89 Encounter for fitting and adjustment of other specified devices (principal); Z99.3 Dependence on wheelchair; R26.9 Unspecified abnormalities of gait and mobility; G81.90 Hemiplegia, unspecified affecting unspecified side; R29.6 Repeated falls; M25.511 Pain in right shoulder; G89.29 Other chronic pain; I10 Essential (primary) hypertension; I69.90 Unspecified sequelae of unspecified cerebrovascular disease

== ENCOUNTER 2018-11-24 20:12 | Emergency (ER) | payer OTHER ==
[2018-11-24 20:21] VITALS: TEMP 98.7; BMI 20.9
--- NOTE | 2018-11-24 20:45 | ED.PDOC ---
General ED Provider: Dr. ALEXANDRO ALMANZAR Chief Complaint: Chest Wall Injury/Pain Stated Complaint: Was going from bed to wheelchair. Missed Wheelchair and hit right ribs on bedside table Time Seen by Physician: 20:41 Mode of Arrival: Walk-In Information Source: Patient Primary Care Provider: CESAR MARTE Nursing and Triage Documentation Reviewed and Agree: Yes Does patient meet sepsis criteria?: No System Inflammatory Response Syndrome: Temp 101F or Greater, Not Applicable Sepsis Protocol: For patient's 13 years and over: Temp is 96.8 and below OR 101 and greater Pulse >90 BPM Resp >20/minute Acutely Altered Mental Status Are patient's symptoms suggestive of a new infection, such as: -Pneumonia -Skin, Soft Tissue -Endocarditis -UTI -Bone, Joint Infection -Implantable Device -Acute Abdominal Infection -Wound Infection -Meningitis -Blood Stream Catheter Infection -Unknown Trauma/Injury Complaint Exam - Truncal Trauma Complaint/Exam Location of Pain: Reports: Right, Anterior (lateral ), Chest Onset: yesterday Symptoms Are: Still present Onset of Pain: Reports: Immediate Initial Severity: Severe Current Severity: Moderate Mechanism: Reports: Fall (while transfering ) Aggravating: Reports: Movement, Deep breathing Alleviating: Reports: None Associated Signs and Symptoms: Reports: Chest pain. Denies: Short of air, Cough , Hematuria, Abdominal pain, Fever, Nausea, Vomiting Related History: Denies: Similar episode, Occupational injury, Anticoagulants, Prior rib fracture Immobilization Removed Post Exam: No Vertebral Tenderness Present: No Vertebral Deformity Present: No Trachial Deviation Present: No JVD Present: No Crepitus Present: No Diminished Breath Sounds: No Muffled Heart Sounds Present: No Paradoxical Chest Wall Movement Present: No Abdominal Guarding Present: No Review of Systems - Review Of Systems Constitutional: Reports: No symptoms Eyes: Reports: No symptoms Ears, Nose, Mouth, Throat: Reports: No symptoms Respiratory: Reports: No symptoms Cardiac: Reports: Chest pain (Right chest wall / rib Pain. ) GI: Reports: No symptoms : Reports: No symptoms Musculoskeletal: Reports: Joint pain Skin: Reports: No symptoms Neurological: Reports: No symptoms Endocrine: Reports: No symptoms Hematologic/Lymphatic: Reports: No symptoms All Other Systems: Reviewed and Negative Past Medical History - Past Medical History Previously Healthy: No Endocrine: Reports: DM 2 Cardiovascular: Reports: CAD Respiratory: Reports: None Hematological: Reports: None Gastrointestinal: Reports: GERD Genitourinary: Reports: None Neuro/Psych: Reports: CVA, Depression Musculoskeletal: Reports: None Cancer: Reports: None Last Menstrual Period: na Other Pertinent Past Medical History: Lower extremity weakness due to prolonged nonuse. - Surgical History General Surgical History: Reports: Orthopedic (WRIST,). Denies: CABG (HEART STENT X 1) - Family History Family History: Reports: Unknown - Social History Smoking Status: Current every day smoker, Heavy tobacco smoker Hx Substance Use: No Alcohol Screening: None - Immunizations Tetanus Shot up to Date: No Physical Exam - Physical Exam Appearance: Well-appearing Pain Distress: Severe Eyes: [place], EOMI, Conjunctiva clear Neck: Supple Respiratory: Airway patent, Breath sounds clear, Breath sounds equal, Respirations nonlabored Cardiovascular: RRR, No rub, No murmur GI/: Soft, Nontender, No masses, Bowel sounds normal, No Organomegaly Musculoskeletal: No edema, No calf tenderness, Limited ROM (lower ext and right upper ext at the shoulder. ), Limited strength (Lower ext ) Skin: Warm, Dry, Normal color Neurological: Sensation intact, Motor intact, Reflexes intact, Cranial nerves intact, Alert, Oriented Psychiatric: Anxious Interpretation - Radiology Interpretation Radiology Interpretation By: Radiologist Radiology Results: Negative Exam Interpreted: CT Scan Re-Evaluation - Re-Evaluation Time of Re-Evaluation: 21:40 Status: Improved Vital Signs Stable: Yes (101/60) Pain Level: much improved. Critical Care Note - Critical Care Note Total Time (mins): 0 Comments: patient states she runs low blood pressure in the 90s and PCP in aware. Course - Course Orders, Labs, Meds: Orders Category Date Time Status Hydrocodone Bit/Acetaminophen [[place] 7.5-325 mg/15 ml] MEDS 11/24/18 20:48 Discontinued 7.5 mg PO ONCE STA CT CHEST W/O CONTRAST Stat RADS 11/24/18 21:14 Completed Medications Discontinued Medications Generic Name Dose Route Start Last Admin Trade Name Freq PRN Reason Stop Dose Admin Hydrocodone Bitart/Acetaminophen 7.5 mg 11/24/18 20:48 11/24/18 20:58 [place] 7.5-325 Mg/15 Ml PO 11/24/18 20:49 7.5 mg ONCE STA Administration Vital Signs: Temp Pulse Resp BP Pulse Ox 11/24/18 21:23 98 H 98 11/24/18 21:03 101/67 11/24/18 20:45 101/73 11/24/18 20:16 98.7 F 98 H 20 88/59 L 96 Departure - Departure Time of Disposition: 21:48 Disposition: HOME SELF-CARE Discharge Problem: Chest wall pain Instructions: Chest Wall Pain (ED) Condition: Stable Pt referred to PMD for follow-up: Yes IPMP verified?: No Additional Instructions: Take medications as prescribed Follow up with PCP in 3 days Prescriptions: Hydrocodone Bit/Acetaminophen [[place] 5-325] 1 each PO Q6HR PRN #15 tablet PRN Reason: severe pain Allergies/Adverse Reactions: Allergies No Known Allergies Allergy (Verified 12/02/17 14:56) Home Medications: Ambulatory Orders Amitriptyline HCl [Elavil] 25 mg PO BEDTIME 02/15/14 Clopidogrel Bisulfate [Plavix] 75 mg PO DAILY 02/15/14 Esomeprazole Magnesium [Nexium] 20 mg PO DAILY 02/15/14 Glyburide [Diabeta] 5 mg PO BID 02/15/14 Insulin Glargine,Hum.rec.anlog [Lantus] 60 unit SUBCUT BEDTIME 02/15/14 Metformin HCl [Glucophage Xr] 500 mg PO BID 02/15/14 Aspirin [Aspirin EC] 81 mg PO DAILYWM 05/22/15 Atorvastatin Calcium [Lipitor] 40 mg PO DAILY 05/22/15 Calcium Carb, Citrate/Vit D3 [Calcium + D3 ER Tablet] 1 each PO BID 05/22/15 Levothyroxine Sodium [Synthroid] 50 mcg PO QDAC 05/22/15 Lisinopril [Zestril] 20 mg PO DAILY 05/22/15 Meclizine HCl [Antivert] 25 mg PO QID PRN 05/22/15 Hydrocodone Bit/Acetaminophen [[place] 5-325] 1 each PO Q6HR PRN #15 tablet Disposition Discussed With: Patient
[2018-11-24] MEDS: NORCO 7.5-325 MG/15 ML PO STA (20:58)
--- NOTE | 2018-11-24 21:32 | CT ---
EXAM: CT chest without contrast HISTORY: Trauma with right rib pain COMPARISON: CT chest 11/24/2017 and multiple priors TECHNIQUE: Serial axial images of the chest were obtained from the lung apices to the upper abdomen without contrast. These were viewed in multiple planes. FINDINGS: The thyroid is normal. The visualized vessels demonstrate mild calcific atherosclerotic d isease without aneurysm or stenosis. The heart is normal in size without pericardial effusion. Ther e are no pathologically enlarged mediastinal or hilar lymph nodes. There are calcified mediastinal o r hilar lymph nodes. There is no pneumothorax or effusion. There is mild emphysema. There is a pulmonary nodule adjacent to the fissure in the right lower lobe on image 37 measuring 1.0 x 0.9 cm in comparison to 0.8 x 1.0 cm on prior. No additional or new consolidation is noted. The airways are patent. Limited views of the soft tissues in the upper abdomen are unremarkable. There is moderate atheroscl erotic disease. The osseous structures are unremarkable. IMPRESSION: 1. No acute cardiopulmonary process or displaced rib fracture. 2. Right-sided pulmonary nodule is not significantly changed from prior exam.
[2018-11-24 21:56] VITALS: BP 120/63
== END 2018-11-24 22:06 | disposition home or self-care (01) ==
LOC: ED 20:12
DX: R07.89 Other chest pain (principal); W22.8XXA Striking against or struck by other objects, initial encounter; F17.210 Nicotine dependence, cigarettes, uncomplicated
CPT/HCPCS: 99282

== ENCOUNTER 2019-02-04 16:52 | Emergency (ER) ==
[2019-02-04 16:52] VITALS: BMI 20.9
[2019-02-04 17:02] VITALS: BP 105/70; TEMP 98.9
--- NOTE | 2019-02-04 17:27 | ED.PDOC ---
General ED Provider: Dr. KIMBERLEY MYERS Chief Complaint: Foot Pain/Injury Stated Complaint: Lt foot pain -over lateral aspect from 5th toe to proximal Metacarpal region.State when being transferred to wheelchair she lost balance and twisted her foot. Non ambulatory due to previouls CVA which left her hemiparetic. Time Seen by Physician: 17:15 Mode of Arrival: Wheelchair Information Source: Patient Exam Limitations: Clinical condition, Physical impairment Primary Care Provider: CESAR MARTE Nursing and Triage Documentation Reviewed and Agree: Yes Does patient meet sepsis criteria?: No System Inflammatory Response Syndrome: Not Applicable Sepsis Protocol: For patient's 13 years and over: Temp is 96.8 and below OR 101 and greater Pulse >90 BPM Resp >20/minute Acutely Altered Mental Status Are patient's symptoms suggestive of a new infection, such as: -Pneumonia -Skin, Soft Tissue -Endocarditis -UTI -Bone, Joint Infection -Implantable Device -Acute Abdominal Infection -Wound Infection -Meningitis -Blood Stream Catheter Infection -Unknown Musculoskeletal Complaint Exam - Ankle/Foot Complaint/Exam Location of Injury: Reports: Left, Foot Mechanism of Injury: Reports: Other (Twisted foot getting into wheel chair) Onset/Duration: 1 hr Symptoms Are: Reports: Still present Onset of Pain: Reports: Immediate Initial Severity: Moderate Current Severity: Moderate Location: Reports: Diffuse (over lat aspect-5th metacarpal in to carpal region ) Character: Reports: Sharp Alleviating: Reports: Rest Aggravating: Reports: Weight bearing Associated Signs and Symptoms: Reports: Swelling Review of Systems - Review Of Systems Constitutional: Reports: No symptoms Eyes: Reports: No symptoms Ears, Nose, Mouth, Throat: Reports: No symptoms Respiratory: Reports: No symptoms Cardiac: Reports: No symptoms GI: Reports: No symptoms : Reports: No symptoms Musculoskeletal: Reports: No symptoms, Joint pain Skin: Reports: No symptoms Neurological: Reports: No symptoms Endocrine: Reports: No symptoms Hematologic/Lymphatic: Reports: No symptoms All Other Systems: Reviewed and Negative Past Medical History - Past Medical History Previously Healthy: No Endocrine: Reports: DM 2 Cardiovascular: Reports: CAD Respiratory: Reports: None Hematological: Reports: None Gastrointestinal: Reports: GERD Genitourinary: Reports: None Neuro/Psych: Reports: CVA, Depression Musculoskeletal: Reports: Joint Pain Cancer: Reports: None Last Menstrual Period: unknown Other Pertinent Past Medical History: Lower extremity weakness due to prolonged nonuse. - Surgical History General Surgical History: Reports: Orthopedic (WRIST,). Denies: CABG (HEART STENT X 1) - Family History Family History: Reports: Unknown - Social History Smoking Status: Current every day smoker, Heavy tobacco smoker Hx Substance Use: No Alcohol Screening: None Physical Exam - Physical Exam Appearance: Well-appearing, No pain distress, Well-nourished Eyes: [place], EOMI, Conjunctiva clear ENT: Ears normal, Nose normal, Oropharynx normal Respiratory: Airway patent, Breath sounds clear, Breath sounds equal, Respirations nonlabored Cardiovascular: RRR, Pulses normal, No rub, No murmur GI/: Soft, Nontender, No masses, Bowel sounds normal, No Organomegaly Musculoskeletal: Normal strength, ROM intact, No edema, No calf tenderness Skin: Warm, Dry, Normal color Neurological: Sensation intact, Motor intact, Reflexes intact, Cranial nerves intact, Alert, Oriented Psychiatric: Affect appropriate, Mood appropriate Interpretation - Radiology Interpretation Radiology Interpretation By: ED Physician Radiology Results: No acute changes Xray Comments: Normal findings Critical Care Note - Critical Care Note Total Time (mins): 0 Course - Course Orders, Labs, Meds: Orders Category Date Time Status HA [TREATMENT ORDER:NURSING] ONCE CARE 02/04/19 18:11 Active Cast shoe [ED SPLINT APPLICATION] .ONCE EMERGENCY 02/04/19 18:21 Active FOOT, LEFT 3 VIEWS Stat RADS 02/04/19 17:27 Completed Vital Signs: Temp Pulse Resp BP Pulse Ox 02/04/19 16:52 98.9 F 108 H 20 105/70 94 L Departure - Departure Time of Disposition: 18:00 Disposition: HOME SELF-CARE Discharge Problem: Contusion of foot, left, Gait difficulty, Hemiplegia following CVA ( cerebrovascular accident) Instructions: Foot Contusion (ED) Condition: Stable Pt referred to PMD for follow-up: Yes (In next week) IPMP verified?: No Additional Instructions: Apply ice to Lt foot for 20 minutes three times daily Keep lt leg elevated HA wrap May take Tylenol 2 tabs Allergies/Adverse Reactions: Allergies No Known Allergies Allergy (Verified 02/04/19 16:59) Home Medications: Ambulatory Orders Amitriptyline HCl [Elavil] 25 mg PO BEDTIME 02/15/14 Clopidogrel Bisulfate [Plavix] 75 mg PO DAILY 02/15/14 Esomeprazole Magnesium [Nexium] 20 mg PO DAILY 02/15/14 Glyburide [Diabeta] 5 mg PO BID 02/15/14 Insulin Glargine,Hum.rec.anlog [Lantus] 60 unit SUBCUT BEDTIME 02/15/14 Metformin HCl [Glucophage Xr] 500 mg PO BID 02/15/14 Aspirin [Aspirin EC] 81 mg PO DAILYWM 05/22/15 Atorvastatin Calcium [Lipitor] 40 mg PO DAILY 05/22/15 Calcium Carb, Citrate/Vit D3 [Calcium + D3 ER Tablet] 1 each PO BID 05/22/15 Levothyroxine Sodium [Synthroid] 50 mcg PO QDAC 05/22/15 Lisinopril [Zestril] 20 mg PO DAILY 05/22/15 Meclizine HCl [Antivert] 25 mg PO QID PRN 05/22/15 Hydrocodone Bit/Acetaminophen [[place] 5-325] 1 each PO Q6HR PRN #15 tablet Disposition Discussed With: Patient
--- NOTE | 2019-02-04 17:47 | DI ---
Exam: Three-view left foot. Date: 02/04/2019. Comparison: 10/13/2016. HISTORY: Pain in injury in the fifth metatarsal area. FINDINGS: The soft tissues are within normal limits. The mineralization is normal. There is a calc aneal spur. The bones are intact and no fracture or dislocation is observed. Impression: No acute osseous abnormality with attention to the left fifth metatarsal.
== END 2019-02-04 18:44 | disposition home or self-care (01) ==
LOC: ED 16:52
DX: S90.32XA Contusion of left foot, initial encounter (principal); X50.1XXA Overexertion from prolonged static or awkward postures, initial encounter; R26.2 Difficulty in walking, not elsewhere classified; I69.359 Hemiplegia and hemiparesis following cerebral infarction affecting unspecified side; F17.210 Nicotine dependence, cigarettes, uncomplicated
CPT/HCPCS: 99283